=== PATIENT | male | born 1990 ===

== ENCOUNTER 2016-09-28 20:46 | Emergency (ER) | payer SELFPAY ==
[~2016-09-28] VITALS: Ht 182.9 cm; Wt 90.7 kg
--- NOTE | 2016-09-28 21:41 | PHYS DOC ---
Past Medical History Past Medical History: No Pertinent History Past Surgical History: Other Additional Past Surgical Histo: nasal surgury Smoking: Cigarettes Alcohol Use: None Drug Use: Marijuana Adult General Chief Complaint Chief Complaint: CHEST PAIN HPI HPI Patient is a 25 year old male who presents with chest pain since yesterday constant but worse with breathing deep breathing maybe radiates to the neck not down the arm. No prior workup or evaluation for chest pain. Denies any leg pain or swelling no prior history of blood clots. No recent long car trips or immobilization. Review of Systems Review of Systems Constitutional: Denies fever or chills [] Eyes: Denies change in visual acuity, redness, or eye pain [] HENT: Denies nasal congestion or sore throat [] Respiratory: Denies cough or shortness of breath [] Cardiovascular: No additional information not addressed in HPI [] GI: Denies abdominal pain, nausea, vomiting, bloody stools or diarrhea [] : Denies dysuria or hematuria [] Musculoskeletal: Denies back pain or joint pain [] Integument: Denies rash or skin lesions [] Neurologic: Denies headache, focal weakness or sensory changes [] Endocrine: Denies polyuria or polydipsia [ All review systems are negative except mentioned in history present illness] Family History Family History Denies cardiac family history or early Current Medications Current Medications Current Medications Medications (Trade) Dose Ordered Sig/[place] Start Time Stop Time Status Last Admin Dose Admin Hydromorphone HCl (Dilaudid) 0.5 mg 1X ONCE 09/28/16 22:00 09/28/16 22:01 DC Info (Do NOT chart on this entry -- for MONITORING) 1 each PRN DAILY PRN 09/28/16 22:15 09/30/16 22:14 Iohexol (Omnipaque 300 Mg/ml) 75 ml 1X ONCE 09/28/16 22:30 09/28/16 22:31 DC 09/28/16 22:10 75 ML Ketorolac Tromethamine (Toradol) 30 mg 1X ONCE 09/28/16 22:15 09/28/16 22:16 DC 09/28/16 21:59 30 MG Potassium Chloride 100 ml @ 100 mls/hr Q1H 09/28/16 22:30 09/28/16 23:29 DC 09/28/16 22:22 100 MLS/HR Potassium Chloride (Klor-Con) 20 meq 1X ONCE 09/28/16 22:15 09/28/16 22:16 DC 09/28/16 22:00 20 MEQ Sodium Chloride 1,000 ml @ 1,000 mls/hr 1X ONCE 09/28/16 22:00 09/28/16 22:59 DC 09/28/16 21:47 1,000 MLS/HR Allergies Allergies Allergies Coded Allergies Type Severity Reaction Last Updated Verified Penicillins Allergy Intermediate RASH 09/28/16 Yes Sulfa (Sulfonamide Antibiotics) Allergy Intermediate "I DONT REMEMBER" Yes Physical Exam Physical Exam Constitutional: Well developed, well nourished, no acute distress, non-toxic appearance. [] HENT: Normocephalic, atraumatic, bilateral external ears normal, oropharynx moist, no oral exudates, nose normal. [] Eyes: PERRLA, EOMI, conjunctiva normal, no discharge. [] Neck: Normal range of motion, no tenderness, supple, no stridor. [] Cardiovascular:Heart regular rhythm, no murmur ; tachycardia, S4 present [] Lungs & Thorax: Bilateral breath sounds clear to auscultation [] Abdomen: Bowel sounds normal, soft, no tenderness, no masses, no pulsatile masses. [] Skin: Warm, dry, no erythema, no rash. [] Back: No tenderness, no CVA tenderness. [] Extremities: No tenderness, no cyanosis, no clubbing, ROM intact, no edema. [] Neurologic: Alert and oriented X 3, normal motor function, normal sensory function, no focal deficits noted. [] Psychologic: Affect normal, judgement normal, mood normal. [] Current Patient Data Vital Signs Vital Signs Date Time Temp Pulse Resp B/P (MAP) Pulse Ox O2 Delivery O2 Flow Rate FiO2 09/28/16 21:23 111 26 147/86 (106) 95 Room Air 09/28/16 20:51 98.8 98.8 Lab Values Laboratory Tests Test 09/28/16 20:55 09/28/16 21:46 White Blood Count 15.4 x10^3/uL (4.0-11.0) H Red Blood Count 5.34 x10^6/uL (4.30-5.70) Hemoglobin 16.4 g/dL (13.0-17.5) Hematocrit 49.5 % (39.0-53.0) Mean Corpuscular Volume 93 fL (79-100) Mean Corpuscular Hemoglobin 31 pg (25-35) Mean Corpuscular Hemoglobin Concent 33 g/dL (31-37) Red Cell Distribution Width 13.9 % (11.5-14.5) Platelet Count 201 x10^3/uL (140-400) Neutrophils (%) (Auto) 60 % (31-73) Lymphocytes (%) (Auto) 28 % (24-48) Monocytes (%) (Auto) 10 % (0-9) H Eosinophils (%) (Auto) 1 % (0-3) Basophils (%) (Auto) 1 % (0-3) Neutrophils # (Auto) 9.2 x10^3uL (1.8-7.7) H Lymphocytes # (Auto) 4.3 x10^3/uL (1.0-4.8) Monocytes # (Auto) 1.6 x10^3/uL (0.0-1.1) H Eosinophils # (Auto) 0.2 x10^3/uL (0.0-0.7) Basophils # (Auto) 0.1 x10^3/uL (0.0-0.2) Sodium Level 143 mmol/L (136-145) Potassium Level 2.6 mmol/L (3.5-5.1) *L Chloride Level 105 mmol/L (98-107) Carbon Dioxide Level 29 mmol/L (21-32) Anion Gap 9 (6-14) 18 mmol/L (6-14) H Blood Urea Nitrogen 10 mg/dL (8-26) Creatinine 1.2 mg/dL (0.7-1.3) Estimated GFR (Cockcroft-Gault) 72.6 BUN/Creatinine Ratio 8 (6-20) Glucose Level 117 mg/dL (70-99) H 112 mg/dL (70-99) H Calcium Level 8.7 mg/dL (8.5-10.1) Total Bilirubin 0.7 mg/dL (0.2-1.0) Aspartate Amino Transferase (AST) 18 U/L (15-37) Alanine Aminotransferase (ALT) 34 U/L (16-63) Alkaline Phosphatase 104 U/L (46-116) Troponin I Quantitative < 0.017 ng/mL (0.000-0.055) Total Protein 7.7 g/dL (6.4-8.2) Albumin 4.2 g/dL (3.4-5.0) Albumin/Globulin Ratio 1.2 (1.0-1.7) POC Hemoglobin 16.7 g/dL (14-18) POC Hematocrit 49 % (37-52) POC Sodium 142 mmol/L (135-145) POC Potassium 2.7 mmol/L (3.5-5.0) L POC Chloride 101 mmol/L (98-110) POC Total CO2 27 mmol/L (23-32) POC Blood Urea Nitrogen 9 mg/dL (8-26) POC Creatinine 1.1 mg/dL (0.5-1.4) POC Ionized Calcium (Danette) 1.19 mmol/L (1.13-1.32) Laboratory Tests 09/28/16 20:55 Laboratory Tests 09/28/16 20:55 09/28/16 21:46 EKG EKG Sinus tachycardia rate of 118 no STEMI QTC normal my interpretation [] Radiology/Procedures Radiology/Procedures Chest x-ray: No acute disease process my interpretation CTA chest: [Negative for pulmonary embolism or dissection or any other acute process per the radiology report] Course & Med Decision Making Course & Med Decision Making Pertinent Labs and Imaging studies reviewed. (See chart for details) Plan will be to obtain labs EKG chest x-ray CTA chest rule out PE and/or dissection or STEMI. Labs demonstrated a potassium at 2.7: Patient was given IV and oral potassium supplementation. 2331 patient feels improved. Chest pain is resolved. Pulse rate sitting at 99 sometimes goes up to about 106. Counseled patient regarding diagnosis need for follow-up and potassium supplementation. [] Dragon Disclaimer Dragon Disclaimer This electronic medical record was generated, in whole or in part, using a voice recognition dictation system. Departure Departure Impression: Primary Impression: Chest pain Additional Impressions: Tachycardia Hypokalemia Condition: STABLE Referrals: NO PCP (PCP) Patient Instructions: Chest Pain (Nonspecific), [id number], Hypokalemia-Brief Scripts Potassium Chloride (POTASSIUM CHLORIDE) 20 Meq Tablet.er 20 MEQ PO DAILY for 5 Days, #5 TAB.SR Prov: UMESH MUELLER MD 09/28/16 Problem Qualifiers UMESH MUELLER MD Sep 28, 2016 21:41
[2016-09-28 21:46] LABS: BASO # 0.1 x10^3/uL (0.0-0.2); BASO % 1 % (0-3); EOS % 1 % (0-3); HEMATOCRIT 49.5 % (39.0-53.0); HEMOGLOBIN 16.4 g/dL (13.0-17.5); LYMPH # 4.3 x10^3/uL (1.0-4.8); LYMPH % 28 % (24-48); MEAN CORPUSCULAR HEMOGLOBIN 31 pg (25-35); MEAN CORPUSCULAR HGB CONC 33 g/dL (31-37); MEAN CORPUSCULAR VOLUME 93 fL (79-100); MONO % 10 % (0-9); NEUT % 60 % (31-73); PLATELET COUNT 201 x10^3/uL (140-400); RED BLOOD COUNT 5.34 x10^6/uL (4.30-5.70); RED CELL DISTRIBUTION WIDTH 13.9 % (11.5-14.5); WHITE BLOOD COUNT 15.4 x10^3/uL (4.0-11.0)
[2016-09-28 21:54] LABS: POTASSIUM ISTAT 2.7 mmol/L (3.5-5.0)
[2016-09-28 22:00] VITALS: BP 149/90
[2016-09-28 22:00] LABS: ALBUMIN 4.2 g/dL (3.4-5.0); ALBUMIN/GLOBULIN RATIO 1.2 (1.0-1.7); CALCIUM 8.7 mg/dL (8.5-10.1); CREATININE 1.2 mg/dL (0.7-1.3); GFR 72.6; TOTAL BILIRUBIN 0.7 mg/dL (0.2-1.0); TOTAL PROTEIN 7.7 g/dL (6.4-8.2)
[2016-09-28] MEDS ORDERED: IV NORMAL SALINE 1000ML BAG 1,000 ML IV ONE (22:00)
[2016-09-28] MEDS ORDERED: HYDROmorphone 2 MG/ML VIAL IV ONE (22:00)
[2016-09-28 22:02] LABS: POTASSIUM 2.6 mmol/L (3.5-5.1)
[2016-09-28] MEDS ORDERED: KETOROLAC TROMETHAMINE 30 MG/ML INJ. IV ONE (22:15)
[2016-09-28] MEDS ORDERED: CONTRAST GIVEN MC PRN (22:15)
[2016-09-28] MEDS ORDERED: POTASSIUM CHLORIDE 20 MEQ TABLET.ER. PO ONE (22:15)
[2016-09-28] MEDS ORDERED: IOHEXOL 300 MG/ML 75 ML VIAL IV ONE (22:30)
[2016-09-28] MEDS ORDERED: POTASSIUM CHLORIDE 10MEQ 100 ML IV SCH (22:30)
--- NOTE | 2016-09-28 22:45 | RAD ---
CT Angio chest Indication: chest pain
omni 300 75ml Technique: Multiple contiguous axial images were obtained through the chest after administration of intravenous iodinated contrast. Coronal, sagittal, and 3-D MIP reformations were created. PQRS STATEMENT: One or more of the following in the visualized dose reduction techniques were utilized for this study: 1. Automatic exposure control, 2. Adjustment of the mA and/or kV according to patient size, 3. Use of iterative reconstruction technique Findings: There is poor opacification of the pulmonary arteries due to the timing of bolus contrast. There is no evidence for saddle embolus or large first-order branch embolus. Heart size is normal. Vasculature is within normal limits. Thoracic aorta is normal in caliber. No thoracic adenopathy is identified. The lungs are clear with no evidence for pleural effusion or infiltrate. There is some mild atelectasis in the dependent lower lobes. No destructive osseous lesion is identified. Limited subdiaphragmatic evaluation is unremarkable. Impression: There is poor opacification of the coronary arteries due to the contrast bolus timing. No obvious pulmonary embolism is identified in the proximal pulmonary arteries. Electronically signed by: Felipe Franco MD (09/28/2016 10:42 PM) [facility]
[2016-09-28] MEDS ORDERED: POTA20TA82 PO (23:33)
--- NOTE | 2016-09-29 07:50 | RAD ---
Portable chest, 2017: History: Chest pain The heart size and pulmonary vascularity are normal. No pulmonary infiltrates are seen. There is no evidence of pleural fluid. IMPRESSION: No acute cardiopulmonary abnormality is detected.
--- NOTE | 2016-09-29 08:09 | EKG ---
[facility] [address] [place] [address] Test Date: 2016-09-28 Test Time: 20:50:56 Pat Name: OSMAN LASSITER Department: Room: Gender: M Student Services Director: : [id number] Requested By: UMESH MUELLER Order Number: [id number] Reading MD: Measurements Intervals [place] Rate: 118 P: -138 CO: 160 QRS: -21 QRSD: 112 T: 37 QT: 314 QTc: 442 Interpretive Statements SINUS TACHYCARDIA LEFTWARD AXIS QRS(T) CONTOUR ABNORMALITY CANNOT RULE OUT ANTEROSEPTAL MYOCARDIAL DAMAGE RI6.01 Unconfirmed report No previous ECG available for comparison
== END 2016-09-29 00:08 | disposition home or self-care (01) ==
LOC: ER 20:46
DX: R07.89 Other chest pain (principal); R00.0 Tachycardia, unspecified; E87.6 Hypokalemia; M54.2 Cervicalgia; F17.210 Nicotine dependence, cigarettes, uncomplicated; F12.10 Cannabis abuse, uncomplicated; Z88.0 Allergy status to penicillin; Z88.2 Allergy status to sulfonamides
CPT/HCPCS: 36415; 71010; 71275; 80047; 80053; 84484; 85027; 93005; 96361; 96365; 96375; 99285; J1885; J3480; J7030; Q9967